=== PATIENT | female | born 1990 | race Caucasian/White ===

== ENCOUNTER 2024-03-05 12:22 | Emergency (ER) | payer OTHER ==
[~2024-03-05] VITALS: Ht 160 cm; Wt 59.6 kg
[~2024-03-05 12:22] MED LIST: ACET-1182 PO
[2024-03-05 12:45] VITALS: BP 116/74; PULSE 102; RESP 16; TEMP 98.4; O2SAT 100
[2024-03-05 13:13] VITALS: BP 116/74; PULSE 102; RESP 16; TEMP 98.4; O2SAT 100
== END 2024-03-05 13:13 | disposition home or self-care (01) ==
LOC: MED 12:22
DX: Z48.02 Encounter for removal of sutures (principal); J45.909 Unspecified asthma, uncomplicated; F12.90 Cannabis use, unspecified, uncomplicated; Z90.49 Acquired absence of other specified parts of digestive tract; Z98.890 Other specified postprocedural states; Z79.899 Other long term (current) drug therapy
CPT/HCPCS: 99281

== ENCOUNTER 2024-04-13 18:08 | Emergency (ER) | payer OTHER ==
[~2024-04-13] VITALS: Ht 160 cm; Wt 65.8 kg
[2024-04-13 18:31] VITALS: BP 111/78; PULSE 98; RESP 18; TEMP 98.6; O2SAT 100
== END 2024-04-13 19:16 | disposition left against medical advice (07) ==
LOC: MED 18:08
DX: M25.561 Pain in right knee (principal); Z53.21 Procedure and treatment not carried out due to patient leaving prior to being seen by health care provider